=== PATIENT | female | born 1990 | race Caucasian/White ===

== ENCOUNTER → 2017-06-02 | Outpatient (CLI) | payer OTHER | END | disposition home or self-care (01) | LOC: C.PAPS 14:28 | PROVIDERS: ATTEND Obstetrics & Gynecology | DX: Z01.419 Encounter for gynecological examination (general) (routine) without abnormal findings (principal); Z87.898 Personal history of other specified conditions ==

== ENCOUNTER → 2017-06-04 | Outpatient (CLI) | payer OTHER ==
[2017-06-04 13:56] LABS: PROLACTIN 6.93 ng/mL; THYROXINE (T4) 5.4 mcg/dl (4.5-10.9)
== END | disposition home or self-care (01) ==
LOC: C.LAB1850 12:04
PROVIDERS: ATTEND Obstetrics & Gynecology
DX: N91.4 Secondary oligomenorrhea (principal)

== ENCOUNTER → 2017-07-20 | Outpatient (CLI) | payer OTHER | END | disposition home or self-care (01) | LOC: C.LAB1850 08:26 | PROVIDERS: ATTEND Psychiatry & Neurology Neurology | DX: G43.009 Migraine without aura, not intractable, without status migrainosus (principal) ==

== ENCOUNTER 2025-02-23 12:24 | Inpatient (IN) ==
[2025-02-23] MEDS ORDERED: SODIUM CHLORIDE 0.9% 100 ML IV PRN (13:11)
[2025-02-23] MEDS ORDERED: CALCIUM CARBONATE 500 MG CHEWABLE TAB PO PRN (13:45)
[2025-02-23] MEDS ORDERED: OXYTOCIN 30 UNITS/NSS 30 UNITS/500 ML BAG IV PRN (13:45)
[2025-02-23] MEDS ORDERED: LIDOCAINE 1% LOCAL 20 ML VIAL INFIL PRN (13:45)
--- NOTE | 2025-02-23 14:24 | History & Physical Report ---
Date of Service February 23, 2025 Assessment & Plan (1) with 39 completed weeks gestation: (2) Epilepsy complicating , antepartum: (3) Elderly primigravida: (4) Encounter for elective induction of labor: Plan start iol with pit/ruiz. fetus category one. anticipate . Admission and Anticipated Discharge Date Admission Date: February 23, 2025 History of Present Illness Chief Complaint: elective iol Primary Care Provider: Irene Perez DO Patient is a 34yowf with iup at 39 2/7 weeks who presents for elective iol. Notes intermittent contractions. No lof/vb. +fm. and Delivery Plans Epilepsy/migraines *sees neuro, Dr. Leon - On Keppra Depression/Anxiety *zoloft *[facility] AMA Weekly NST's @ 36 weeks Wants to consider 39wk elective induction - PD IOL scheduled for 02/23 with [facility] OB Labs: Blood Type O Positive 08/09/24 Antibody Screen NEGATIVE 08/09/24 Hgb 12.0 g/dl (12.0-16.0) 12/20/24 Hct 35.3 % (37.0-47.0) L 12/20/24 MCV 85.0 fL (80.0-100.0) 08/09/24 Plt Count 281 K/uL (130-400) 08/09/24 Rubella IgG Antibody Immune (Immune) 08/09/24 Treponema pallidum Ab Negative (Negative) 12/20/24 Hep Bs Antigen Negative (Negative) 08/09/24 Hepatitis C Antibody Negative (Negative) 08/09/24 HIV 1&2 Ab/P24 Ag 4thGn Negative (Negative) 08/09/24 Glucose 1 Hr 50 gm 115 mg/dl (70-130) 12/20/24 Maternal Serum AFP 51.8 ng/mL 09/15/24 OB Optional Labs: Chlamydia trachomatis RNA Not Detected (NotDetected) 08/09/24 Neisseria gonorrhoeae RNA Not Detected (NotDetected) 08/09/24 Thyroid Stimulating Hormone (TSH) 1.216 uIu/ml (0.300-4.500) 11/04/22 Alpha Fetoprotein Triple Screen SEE NOTE 09/15/24 Labs Reviewed: afp neg neg horizon low risk panorama. gbs neg Allergies Allergy/AdvReac Type Severity Reaction Status Date / Time topiramate AdvReac Intermediate hair loss Verified 02/22/25 13:32 Home Medications Medication Instructions Recorded Confirmed Type albuterol sulfate 90 mcg/actuation 2 puffs inhalation Q6H PRN Wheezing 02/28/19 02/23/25 History aerosol inhaler (Ventolin HFA) azelastine 137 mcg (0.1 %) nasal 2 sprays intranasal BID 02/28/19 02/23/25 History spray fluticasone propionate 50 2 sprays intranasal BID 02/28/19 02/23/25 History mcg/actuation nasal spray,suspension cholecalciferol (vitamin D3) 125 125 mcg PO DAILY 10/07/21 02/23/25 History mcg (5,000 unit) capsule ferrous sulfate 325 mg (65 mg 125 mg PO Q OTHER DAY 10/07/21 02/23/25 History iron) tablet (Feosol) sulfacetamide sodium 10 % topical 1 applic topical BID 04/06/22 02/23/25 History cream magnesium oxide 500 mg capsule 500 mg PO BID 09/14/23 02/23/25 History riboflavin (vitamin B2) 400 mg 400 mg PO DAILY 09/14/23 02/23/25 History tablet docosahexaenoic acid 200 mg 200 mg PO DAILY 01/20/24 02/23/25 History capsule ( DHA) folic acid 1 mg tablet 1 mg PO DAILY 30 days #30 tabs 05/02/24 02/23/25 Rx sertraline 50 mg tablet 150 mg PO DAILY 08/02/24 02/23/25 History levetiracetam 1,000 mg tablet 1,000 mg PO BID #60 tabs 10/23/24 02/23/25 Rx (Keppra) Patient History Medical History Depression with anxiety History of chicken pox History of HPV infection Chlamydia Asthma Common migraine without aura Restless leg syndrome Surgical History S/P wisdom tooth extraction 2 wisdom teeth H/O cervical biopsy Family History Grandfather (Paternal) No problems noted. Grandmother (Paternal) Seizure disorder Colorectal cancer Grandfather (Maternal) Prostate cancer Mother Rheumatoid arthritis Tinnitus Grandmother (Maternal) Tinnitus Father Skin cancer Denies family history of Ovarian cancer Breast cancer Social History Smoking Status: Former smoker Tobacco Type: Cigarettes Smoking End Date: 2016; Second Hand Exposure: No; Do You Dip or Chew Tobacco: No; Hx Alcohol Use: No Hx Substance Use: No Preferred Language: Kyrgyz Communication Ability: Effective Professor Of Theology Required: No Beliefs That Will Affect Care: None marital status: marital status details: Kieran Esquivel (31) [phone] Current Living Situation: Spouse Current Living Situation Comment: lives with spouse, dog current occupational status: employed 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 toco--fab efm--140s with mod variability, small accels, no decels Results & Data Vital Signs (Past 12 Hours) Vital Signs Temp Pulse Resp BP 02/23/25 12:42 36.7 C 106 H 20 119/73 02/23/25 12:39 36.7 C 106 H 20 119/73 Coding Level of Care Code None Diagnoses with 39 completed weeks gestation Z3A.39 Epilepsy complicating , antepartum O99.350; G40.909 Elderly primigravida O09.519 Encounter for elective induction of labor Z34.90
[2025-02-23 14:31] LABS: Hematocrit (blood only) 34.9 % (37.0-47.0); Hemoglobin 12.2 g/dl (12.0-16.0); Mean Corpuscular Hemoglobin 29.0 pg (25.0-34.0); Mean Corpuscular Volume 83.1 fL (80.0-100.0); Platelet Count 151 K/uL (130-400); RDW Standard Deviation 39.7 fL (36.4-46.3); Red Blood Count 4.20 M/uL (4.20-5.40); White Blood Count 10.24 K/ul (4.8-10.8)
[2025-02-23] MEDS: OXYTOCIN 30 UNITS/NSS 30 UNITS/500 ML BAG IV PRN (15:22)
[2025-02-23] MEDS: LACTATED RINGER'S 1,000 ML IV PRN (15:22)
--- NOTE | 2025-02-23 17:45 | Labor Progress Brief Note ---
Date of Service February 23, 2025 Subjective Bulb fell out. Noting contractions 01/02 Assessment & Plan (1) Encounter for elective induction of labor: Plan continue current therapy. fetus category one. epidural on demand. Admission and Anticipated Discharge Date Admission Date: February 23, 2025 Physical Exam Physical Exam: cx--/-2, arom--clear toco--q2-4min, pit at 6 efm--150s wtih mod varaibility, accels to 170s, no decels Results & Data Vital Signs (Past 12 Hours) Vital Signs Temp Pulse Resp BP 02/23/25 17:30 74 116/58 L 02/23/25 16:30 63 117/74 02/23/25 15:24 88 112/65 02/23/25 12:42 36.7 C 106 H 20 119/73 02/23/25 12:39 36.7 C 106 H 20 119/73 Coding Level of Care Code None Diagnoses Encounter for elective induction of labor Z34.90
--- NOTE | 2025-02-23 18:17 | Anesthesiology Consultation ---
Date of Service February 23, 2025 Assessment & Plan Chart Review Chart Review: Acceptable Risk for Labor Epidural Consults Requested none ASA ASA2 Proposed Anesthesia Anesthesia Type: Labor Epidural Risk / Benefits Reviewed With: PT / POA / Parent / Guardian, Accepts Plan and Informed Consent Obtained History Height/Weight Height: 5 ft Weight: 84.822 kg Allergies Allergy/AdvReac Type Severity Reaction Status Date / Time topiramate AdvReac Intermediate hair loss Verified 02/22/25 13:32 Medications Home Medications Medication Instructions Recorded Confirmed Last Taken albuterol sulfate 90 mcg/actuation 2 puffs inhalation Q6H PRN Wheezing 02/28/19 02/23/25 Unknown aerosol inhaler (Ventolin HFA) azelastine 137 mcg (0.1 %) nasal 2 sprays intranasal BID 02/28/19 02/23/25 02/23/25 05:30 spray fluticasone propionate 50 2 sprays intranasal BID 02/28/19 02/23/25 02/22/25 08:00 mcg/actuation nasal spray,suspension cholecalciferol (vitamin D3) 125 125 mcg PO DAILY 10/07/21 02/23/25 02/22/25 21:00 mcg (5,000 unit) capsule ferrous sulfate 325 mg (65 mg 125 mg PO Q OTHER DAY 10/07/21 02/23/25 02/23/25 05:30 iron) tablet (Feosol) sulfacetamide sodium 10 % topical 1 applic topical BID 04/06/22 02/23/25 02/23/25 05:30 cream magnesium oxide 500 mg capsule 500 mg PO BID 09/14/23 02/23/25 02/23/25 05:30 riboflavin (vitamin B2) 400 mg 400 mg PO DAILY 09/14/23 02/23/25 02/23/25 05:30 tablet docosahexaenoic acid 200 mg 200 mg PO DAILY 01/20/24 02/23/25 02/23/25 05:30 capsule ( DHA) folic acid 1 mg tablet 1 mg PO DAILY 30 days #30 tabs 05/02/24 02/23/25 02/23/25 05:30 sertraline 50 mg tablet 150 mg PO DAILY 08/02/24 02/23/25 02/22/25 21:00 levetiracetam 1,000 mg tablet 1,000 mg PO BID #60 tabs 10/23/24 02/23/25 02/23/25 05:30 (Keppra) Active Medications Generic Name Dose Route Start Last Admin Trade Name Emmy PRN Reason Stop Dose Admin Lactated Ringer's 1,000 mls @ 125 mls/hr 02/23/25 13:45 02/23/25 15:22 Lr IV 02/25/25 13:44 125 mls/hr .Q8H PRN Administration L&D Protocol Protocol Oxytocin 30 units in 500 mls @ 6 mls/hr 02/23/25 14:32 02/23/25 16:30 Pitocin 30 Units/Nss IV 02/25/25 14:31 0.36 units/hr .Q24H PRN 6 mls/hr Labor Induction/Augmentation Titration Protocol 0.36 UNITS/HR NPO Date Last Intake of Fluids: 02/23/25 Time Last Intake of Fluids: 18:15 Date Last Intake of Solids: 02/23/25 Time Last Intake of Solids: 11:00 Last Intake of Solids Comment: Dwayne benoit Past Medical History Medical History (Updated 02/23/25 @ 18:15 by Clare Mccarthy DO) Epilepsy complicating , antepartum Depression with anxiety History of chicken pox History of HPV infection Chlamydia Asthma Common migraine without aura Restless leg syndrome Exercise / Class Metabolic Activity II 4-5 Yardwork/Stairs/Walk up hill Past Family History Family History Grandfather (Paternal) No problems noted. Grandmother (Paternal) Seizure disorder Colorectal cancer Grandfather (Maternal) Prostate cancer Mother Rheumatoid arthritis Tinnitus Grandmother (Maternal) Tinnitus Father Skin cancer Denies family history of Ovarian cancer Breast cancer Past Surgical History Surgical History S/P wisdom tooth extraction 2 wisdom teeth H/O cervical biopsy Past Anesthesia History No Hx of Anesthesia Complications and No Family Hx of Anesthesia Complications History of PONV No Hx of PONV and No Hx of Motion Sickness Social History Smoking Status: Former smoker Do You Dip or Chew Tobacco: No Smoking End Date: 2016 Hx Alcohol Use: No Hx Substance Use: No Physical Exam Vital Signs Last Vital Signs Temp 36.7 C 02/23/25 12:42 Pulse 74 02/23/25 17:30 Resp 20 02/23/25 12:42 BP 116/58 L 02/23/25 17:30 ENMT Mouth: no TMJ abnormality Thyromental Distance: > or= 3.5 Finger Breadths Mallampati Class: II Neck normal visual inspection and trachea midline; neck extension not limited Respiratory normal respiratory effort Auscultation: lungs clear to auscultation bilaterally Cardiovascular Rate/Rhythm: regular rate and regular rhythm Heart Sounds: no murmur Musculoskeletal Spine: normal cervical ROM Extremities: full ROM of extremities Neurologic moves all extremities Psychiatric Orientation: alert and oriented x 3 Testing Laboratory Results 02/23/25 13:42 Blood Type O Positive 02/23/25 13:41 Antibody Screen NEGATIVE 02/23/25 13:41
[2025-02-23] MEDS: BUPIVACAINE 0.25% PF 30 ML VIAL ONE (18:40)
[2025-02-23] MEDS: LIDOCAINE 2%/EPINEPHRINE 1:200,000 20 ML PF ONE (18:40)
[2025-02-23] MEDS: fentANYL 2 MCG/ML BUPIVacaine 0.125%-NSS 100ML BAG ONE (18:40)
[2025-02-23] MEDS ORDERED: NALBUPHINE HCL INJ 10 MG/ML AMP IV PRN (18:43)
[2025-02-23] MEDS ORDERED: diphenhydrAMINE 50 MG/ML VIAL IV PRN (18:43)
[2025-02-23] MEDS ORDERED: BUPIVACAINE 0.25% PF 30 ML VIAL EPI PRN (18:43)
[2025-02-23] MEDS ORDERED: NALOXONE HCL 1 MG in SODIUM CHLORIDE 0.9% 1,000 ML IV PRN (18:43)
[2025-02-23] MEDS ORDERED: ONDANSETRON INJ 2 MG/ML 2 ML VIAL IV PRN (18:43)
[2025-02-23] MEDS ORDERED: SODIUM CHLORIDE 0.9% PF INJ 10 ML VIAL EPI PRN (18:43)
[2025-02-23] MEDS ORDERED: LIDOCAINE 2% MPF LOCAL 5 ML VIAL EPI PRN (18:43)
[2025-02-23] MEDS ORDERED: NALOXONE HCL 0.4 MG/1 ML VIAL/CARP IV PRN (18:43)
[2025-02-23] MEDS ORDERED: ROPIVACAINE 0.5% PF 5 MG/ML 20 ML VIAL EPI PRN (18:43)
[2025-02-23] MEDS: levETIRAcetam 500 MG TAB PO SCH (21:06)
--- NOTE | 2025-02-23 22:40 | Labor Progress Brief Note ---
Date of Service February 23, 2025 Subjective comfortable Assessment & Plan (1) Encounter for elective induction of labor: Plan fetus overall reassuring category one, occasional variable. Is making slow change so hold off on iupc at this point. Recheck in a couple of hours. Admission and Anticipated Discharge Date Admission Date: February 23, 2025 Physical Exam Physical Exam: cx--5/100/-2 toco--q1-3, pit at 10 efm--130s with mod variability, occasional variable, accels to 150s, +scalp stim light green mec has been noted. Results & Data Vital Signs (Past 12 Hours) Vital Signs Temp Pulse Resp BP Pulse Ox 02/23/25 22:36 103 H 100 02/23/25 22:31 83 98 02/23/25 22:26 84 99 02/23/25 22:21 77 98 02/23/25 22:16 78 99 02/23/25 22:13 86 112/59 L 02/23/25 22:11 84 99 02/23/25 22:06 87 99 02/23/25 22:01 86 99 02/23/25 21:56 83 99 02/23/25 21:51 93 H 99 02/23/25 21:46 79 99 02/23/25 21:41 85 100 02/23/25 21:36 87 99 02/23/25 21:31 77 100 02/23/25 21:30 73 104/59 L 02/23/25 21:26 73 99 02/23/25 21:21 75 99 02/23/25 21:16 76 99 02/23/25 21:11 80 100 02/23/25 21:06 78 99 02/23/25 21:01 77 98 02/23/25 21:00 36.6 C 72 16 104/53 L 02/23/25 20:56 76 98 02/23/25 20:51 76 98 02/23/25 20:46 75 99 02/23/25 20:45 86 96/50 L 02/23/25 20:41 76 98 02/23/25 20:36 72 98 02/23/25 20:31 74 97 02/23/25 20:29 75 108/57 L 02/23/25 20:26 74 98 02/23/25 20:21 78 98 02/23/25 20:15 77 98 02/23/25 20:14 73 106/57 L 02/23/25 20:10 83 98 02/23/25 20:05 79 97 02/23/25 20:00 75 97 02/23/25 19:59 77 105/59 L 02/23/25 19:55 76 97 02/23/25 19:50 78 98 02/23/25 19:45 83 98 02/23/25 19:44 81 104/53 L 02/23/25 19:40 80 98 02/23/25 19:35 80 98 02/23/25 19:30 81 98 02/23/25 19:29 78 99/54 L 02/23/25 19:25 81 98 02/23/25 19:20 80 98 02/23/25 19:15 77 98 02/23/25 19:10 85 102/61 99 02/23/25 19:05 99 02/23/25 19:05 84 02/23/25 19:05 94 H 115/60 02/23/25 19:01 81 107/59 L 02/23/25 19:00 18 02/23/25 19:00 36.6 C 18 02/23/25 18:59 84 98 02/23/25 18:55 82 113/60 02/23/25 18:54 83 99 02/23/25 18:49 99 02/23/25 18:49 92 H 02/23/25 18:49 87 123/63 02/23/25 18:47 84 126/63 02/23/25 18:45 83 120/59 L 02/23/25 18:44 84 100 02/23/25 18:43 92 H 119/65 02/23/25 18:41 86 117/58 L 02/23/25 18:40 91 H 120/60 02/23/25 18:39 90 127/62 100 02/23/25 18:37 82 139/66 02/23/25 18:35 93 H 128/53 L 02/23/25 18:34 84 100 02/23/25 18:29 89 84 L 02/23/25 18:28 81 89 L 02/23/25 18:24 83 100 02/23/25 18:19 87 100 02/23/25 18:14 73 99 02/23/25 17:30 74 116/58 L 02/23/25 16:30 63 117/74 02/23/25 15:24 88 112/65 02/23/25 12:42 36.7 C 106 H 20 119/73 02/23/25 12:39 36.7 C 106 H 20 119/73 Coding Level of Care Code None Diagnoses Encounter for elective induction of labor Z34.90
[2025-02-23] MEDS: ACETAMINOPHEN 325 MG TAB PO PRN (22:45)
[2025-02-24] MEDS: fentANYL 2 MCG/ML BUPIVacaine 0.125%-NSS 100ML BAG EPI PRN (01:45)
--- NOTE | 2025-02-24 02:15 | Labor Progress Brief Note ---
Date of Service February 24, 2025 Subjective noting pressure with contractions, some cramping Assessment & Plan (1) Encounter for elective induction of labor: Plan looks like we need more pitocin, aim for 200mvus. Fetus overall reassuring category one. Admission and Anticipated Discharge Date Admission Date: February 23, 2025 Physical Exam Physical Exam: cx--5-6/100/-2 toco--q2min, pit at 10 iupc placed--contractions only looking about 25 mvus efm--120s with mod varaibility, accels present, occasional variable Results & Data Vital Signs (Past 12 Hours) Vital Signs Temp Pulse Resp BP Pulse Ox 02/24/25 02:11 78 100 02/24/25 02:06 87 100 02/24/25 02:01 82 100 02/24/25 01:56 85 100 02/24/25 01:51 83 99 02/24/25 01:46 81 99 02/24/25 01:41 91 H 99 02/24/25 01:36 85 99 02/24/25 01:34 36.8 C 82 16 111/60 02/24/25 01:31 81 97 02/24/25 01:26 82 97 02/24/25 01:21 78 97 02/24/25 01:16 78 97 02/24/25 01:11 85 97 02/24/25 01:06 84 97 02/24/25 01:01 83 97 02/24/25 00:56 81 96 02/24/25 00:51 86 97 02/24/25 00:46 79 98 02/24/25 00:41 83 98 02/24/25 00:36 78 99 02/24/25 00:31 114 H 98 02/24/25 00:29 83 119/66 02/24/25 00:26 86 99 02/24/25 00:21 81 96 02/24/25 00:16 79 96 02/24/25 00:11 76 97 02/24/25 00:06 78 97 02/24/25 00:01 76 97 02/23/25 23:56 76 97 02/23/25 23:51 76 97 02/23/25 23:46 79 98 02/23/25 23:45 36.6 C 75 16 115/56 L 02/23/25 23:41 76 98 02/23/25 23:36 71 99 02/23/25 23:31 88 100 02/23/25 23:26 93 H 100 02/23/25 23:21 85 100 02/23/25 23:16 93 H 99 02/23/25 23:11 80 99 02/23/25 23:06 79 99 02/23/25 23:01 89 99 02/23/25 22:56 89 98 02/23/25 22:51 82 98 02/23/25 22:46 88 98 02/23/25 22:41 85 99 02/23/25 22:36 103 H 100 02/23/25 22:31 83 98 02/23/25 22:26 84 99 02/23/25 22:21 77 98 02/23/25 22:16 78 99 02/23/25 22:13 86 112/59 L 02/23/25 22:11 84 99 02/23/25 22:06 87 99 02/23/25 22:01 86 99 02/23/25 21:56 83 99 02/23/25 21:51 93 H 99 02/23/25 21:46 79 99 02/23/25 21:41 85 100 02/23/25 21:36 87 99 02/23/25 21:31 77 100 02/23/25 21:30 73 104/59 L 02/23/25 21:26 73 99 02/23/25 21:21 75 99 02/23/25 21:16 76 99 02/23/25 21:11 80 100 02/23/25 21:06 78 99 02/23/25 21:01 77 98 02/23/25 21:00 36.6 C 72 16 104/53 L 02/23/25 20:56 76 98 02/23/25 20:51 76 98 02/23/25 20:46 75 99 02/23/25 20:45 86 96/50 L 02/23/25 20:41 76 98 02/23/25 20:36 72 98 02/23/25 20:31 74 97 02/23/25 20:29 75 108/57 L 02/23/25 20:26 74 98 02/23/25 20:21 78 98 02/23/25 20:15 77 98 02/23/25 20:14 73 106/57 L 02/23/25 20:10 83 98 08/01/25 20:05 79 97 02/23/25 20:00 75 97 02/23/25 19:59 77 105/59 L 02/23/25 19:55 76 97 02/23/25 19:50 78 98 02/23/25 19:45 83 98 02/23/25 19:44 81 104/53 L 02/23/25 19:40 80 98 02/23/25 19:35 80 98 02/23/25 19:30 81 98 02/23/25 19:29 78 99/54 L 02/23/25 19:25 81 98 02/23/25 19:20 80 98 02/23/25 19:15 77 98 02/23/25 19:10 85 102/61 99 02/23/25 19:05 99 02/23/25 19:05 84 02/23/25 19:05 94 H 115/60 02/23/25 19:01 81 107/59 L 02/23/25 19:00 18 02/23/25 19:00 36.6 C 18 02/23/25 18:59 84 98 02/23/25 18:55 82 113/60 02/23/25 18:54 83 99 02/23/25 18:49 99 02/23/25 18:49 92 H 02/23/25 18:49 87 123/63 02/23/25 18:47 84 126/63 02/23/25 18:45 83 120/59 L 02/23/25 18:44 84 100 02/23/25 18:43 92 H 119/65 02/23/25 18:41 86 117/58 L 02/23/25 18:40 91 H 120/60 02/23/25 18:39 90 127/62 100 02/23/25 18:37 82 139/66 02/23/25 18:35 93 H 128/53 L 02/23/25 18:34 84 100 02/23/25 18:29 89 84 L 02/23/25 18:28 81 89 L 02/23/25 18:24 83 100 02/23/25 18:19 87 100 02/23/25 18:14 73 99 02/23/25 17:30 74 116/58 L 02/23/25 16:30 63 117/74 02/23/25 15:24 88 112/65 Coding Level of Care Code None Diagnoses Encounter for elective induction of labor Z34.90
[2025-02-24] MEDS: diphenhydrAMINE Capsule 25 MG CAP PO ONE ×2 (02:45→11:42)
[2025-02-24] MEDS: METOCLOPRAMIDE HCL 10 MG TABLET PO ONE ×2 (02:46→11:43)
--- NOTE | 2025-02-24 06:34 | Labor Progress Brief Note ---
Date of Service February 24, 2025 Subjective comfortable Assessment & Plan (1) Encounter for elective induction of labor: Plan Having difficulty getting an adequate contraction pattern. Fetus is overall reassuring category 2 with occasional variables noted making it 2. Discussed concern at this point of not being able to get adequate contractions. Will need to continue to go up on the pitocin to see if we can achieve anything close to adequate. Baby is still high in the pelvis. Patient expresses understanding. Admission and Anticipated Discharge Date Admission Date: February 23, 2025 Physical Exam Physical Exam: cx--5-6/90/-2 toco--inadequate and at times dysfunctional contraction pattern. Not 200mvus. Pit at 16. efm--120s with mod varability, small accels, +scalp stim. Occasional variables, mostly with contractions. Results & Data Vital Signs (Past 12 Hours) Vital Signs Temp Pulse Resp BP Pulse Ox 02/24/25 06:26 93 H 100 02/24/25 06:21 77 97 02/24/25 06:16 84 97 02/24/25 06:11 86 98 02/24/25 06:06 80 98 02/24/25 06:01 77 98 02/24/25 05:56 77 98 02/24/25 05:51 79 98 02/24/25 05:46 76 98 02/24/25 05:41 82 100 02/24/25 05:38 36.8 C 85 16 107/64 02/24/25 05:36 107 H 100 02/24/25 05:31 83 98 02/24/25 05:26 86 98 02/24/25 05:21 82 98 02/24/25 05:16 81 98 02/24/25 05:11 79 98 02/24/25 05:06 82 98 02/24/25 05:01 75 99 02/24/25 04:56 77 99 02/24/25 04:51 74 99 02/24/25 04:46 93 H 99 02/24/25 04:41 79 100 02/24/25 04:36 75 99 02/24/25 04:31 93 H 100 02/24/25 04:26 84 99 02/24/25 04:21 85 100 02/24/25 04:16 74 100 02/24/25 04:11 71 99 02/24/25 04:10 36.8 C 72 16 113/61 08/02/25 04:06 85 100 02/24/25 04:01 78 99 02/24/25 03:56 77 99 02/24/25 03:51 72 99 02/24/25 03:46 75 98 02/24/25 03:41 74 98 02/24/25 03:36 76 98 02/24/25 03:31 74 98 02/24/25 03:26 75 98 02/24/25 03:21 77 97 02/24/25 03:16 75 98 02/24/25 03:11 76 98 02/24/25 03:06 78 99 02/24/25 03:03 36.5 C 76 15 116/65 02/24/25 03:01 75 98 02/24/25 02:56 79 98 02/24/25 02:51 77 99 02/24/25 02:46 75 99 02/24/25 02:41 81 99 02/24/25 02:36 80 99 02/24/25 02:31 87 99 02/24/25 02:26 78 99 02/24/25 02:21 74 100 02/24/25 02:20 79 114/65 02/24/25 02:16 71 100 02/24/25 02:11 78 100 02/24/25 02:06 87 100 02/24/25 02:01 82 100 02/24/25 01:56 85 100 02/24/25 01:51 83 99 02/24/25 01:46 81 99 02/24/25 01:41 91 H 99 02/24/25 01:36 85 99 02/24/25 01:34 36.8 C 82 16 111/60 02/24/25 01:31 81 97 02/24/25 01:26 82 97 02/24/25 01:21 78 97 02/24/25 01:16 78 97 02/24/25 01:11 85 97 02/24/25 01:06 84 97 02/24/25 01:01 83 97 02/24/25 00:56 81 96 02/24/25 00:51 86 97 02/24/25 00:46 79 98 02 00:41 83 98 02/24/25 00:36 78 99 02/24/25 00:31 114 H 98 02/24/25 00:29 83 119/66 08/02/25 00:26 86 99 02/24/25 00:21 81 96 02/24/25 00:16 79 96 02/24/25 00:11 76 97 02/24/25 00:06 78 97 02/24/25 00:01 76 97 02/23/25 23:56 76 97 02/23/25 23:51 76 97 02/23/25 23:46 79 98 02/23/25 23:45 36.6 C 75 16 115/56 L 02/23/25 23:41 76 98 02/23/25 23:36 71 99 02/23/25 23:31 88 100 02/23/25 23:26 93 H 100 02/23/25 23:21 85 100 02/23/25 23:16 93 H 99 02/23/25 23:11 80 99 02/23/25 23:06 79 99 02/23/25 23:01 89 99 02/23/25 22:56 89 98 02/23/25 22:51 82 98 02/23/25 22:46 88 98 02/23/25 22:41 85 99 02/23/25 22:36 103 H 100 02/23/25 22:31 83 98 02/23/25 22:26 84 99 02/23/25 22:21 77 98 02/23/25 22:16 78 99 02/23/25 22:13 86 112/59 L 02/23/25 22:11 84 99 02/23/25 22:06 87 99 02/23/25 22:01 86 99 02/23/25 21:56 83 99 02/23/25 21:51 93 H 99 02/23/25 21:46 79 99 02/23/25 21:41 85 100 02/23/25 21:36 87 99 02/23/25 21:31 77 100 02/23/25 21:30 73 104/59 L 02/23/25 21:26 73 99 02/23/25 21:21 75 99 02/23/25 21:16 76 99 02/23/25 21:11 80 100 02/23/25 21:06 78 99 02/23/25 21:01 77 98 02/23/25 21:00 36.6 C 72 16 104/53 L 02/23/25 20:56 76 98 02/23/25 20:51 76 98 02/23/25 20:46 75 99 02/23/25 20:45 86 96/50 L 02/23/25 20:41 76 98 02/23/25 20:36 72 98 02/23/25 20:31 74 97 02/23/25 20:29 75 108/57 L 02/23/25 20:26 74 98 02/23/25 20:21 78 98 02/23/25 20:15 77 98 02/23/25 20:14 73 106/57 L 02/23/25 20:10 83 98 02/23/25 20:05 79 97 02/23/25 20:00 75 97 02/23/25 19:59 77 105/59 L 02/23/25 19:55 76 97 02/23/25 19:50 78 98 02/23/25 19:45 83 98 02/23/25 19:44 81 104/53 L 02/23/25 19:40 80 98 02/23/25 19:35 80 98 02/23/25 19:30 81 98 02/23/25 19:29 78 99/54 L 02/23/25 19:25 81 98 02/23/25 19:20 80 98 02/23/25 19:15 77 98 02/23/25 19:10 85 102/61 99 02/23/25 19:05 99 02/23/25 19:05 84 02/23/25 19:05 94 H 115/60 02/23/25 19:01 81 107/59 L 02/23/25 19:00 18 02/23/25 19:00 36.6 C 18 02/23/25 18:59 84 98 02/23/25 18:55 82 113/60 02/23/25 18:54 83 99 02/23/25 18:49 99 02/23/25 18:49 92 H 02/23/25 18:49 87 123/63 02/23/25 18:47 84 126/63 02/23/25 18:45 83 120/59 L 02/23/25 18:44 84 100 02/23/25 18:43 92 H 119/65 02/23/25 18:41 86 117/58 L 02/23/25 18:40 91 H 120/60 02/23/25 18:39 90 127/62 100 02/23/25 18:37 82 139/66 02/23/25 18:35 93 H 128/53 L 02/23/25 18:34 84 100 Coding Level of Care Code None Diagnoses Encounter for elective induction of labor Z34.90
[2025-02-24] MEDS: LIDOCAINE 2%/EPINEPHRINE 1:200,000 20 ML PF EPI STA (08:16)
[2025-02-24] MEDS: SODIUM CHLORIDE 0.9% PF INJ 10 ML VIAL ONE (08:16)
[2025-02-24] MEDS: SODIUM CHLORIDE 0.9% PF INJ 10 ML VIAL EPI STA (08:16)
[2025-02-24] MEDS: BUPIVACAINE 0.25% PF 30 ML VIAL EPI STA (08:16)
[2025-02-24] MEDS: SERTRALINE HCL 50 MG TABLET PO SCH ×2 (08:17→20:49)
[2025-02-24] MEDS ORDERED: levETIRAcetam 500 MG TAB PO SCH (09:00)
--- NOTE | 2025-02-24 09:34 | Labor Progress Brief Note ---
Date of Service February 24, 2025 Subjective comfortable w/ epidural Assessment & Plan (1) Encounter for elective induction of labor: (2) with 39 completed weeks gestation: Plan 34 yo G1 at 39 3/7 wga admitted for eIOL VSS Fetus cat 1 Pit just increased to 26, sve still similar, ?if slight progress in station but hard to tell as this was my first exam. She is considering cs at this point given lack in progress but may want to get to 30 first to see if any further change, can certainly go to 30 as she and baby are reassuring. Will let me know if changes her mind before then GBS neg epidural in place Admission and Anticipated Discharge Date Admission Date: February 23, 2025 Physical Exam Genitourinary: Manual OB Exam: + cervical dilation (5-6), + cervical effacement 80% and 90% and + station -2 and -1 OB Exam Monitor Tracing: + external FHT monitor used, + intra-uterine pressure catheter used (ctx inadeq) and + category I (125-130/mod/+accel/intermit early) Results & Data Vital Signs (Past 12 Hours) Vital Signs Temp Pulse Resp BP Pulse Ox 02/24/25 09:26 88 100 02/24/25 09:21 86 99 02/24/25 09:16 85 99 02/24/25 09:11 76 98 02/24/25 09:06 78 99 02/24/25 09:01 78 99 02/24/25 08:56 83 100 02/24/25 08:51 82 99 02/24/25 08:46 81 99 02/24/25 08:41 80 100 02/24/25 08:36 84 100 02/24/25 08:31 85 100 02/24/25 08:26 80 99 02/24/25 08:21 83 100 02/24/25 08:16 80 100 02/24/25 08:11 91 H 100 02/24/25 08:06 83 100 02/24/25 08:01 77 100 02/24/25 07:56 80 99 02/24/25 07:51 76 100 02/24/25 07:48 98.1 F 74 20 117/61 02/24/25 07:46 76 100 02/24/25 07:41 87 100 02/24/25 07:36 93 H 98 02/24/25 07:31 85 100 02/24/25 07:26 83 100 02/24/25 07:21 100 02/24/25 07:21 98 H 02/24/25 07:21 107 H 92 02/24/25 07:16 94 H 100 02/24/25 07:11 85 100 02/24/25 07:06 88 100 02/24/25 07:01 85 100 02/24/25 06:56 84 98 02/24/25 06:51 78 98 02/24/25 06:46 79 98 02/24/25 06:41 76 99 02/24/25 06:36 84 99 02/24/25 06:31 91 H 99 02/24/25 06:30 85 116/72 02/24/25 06:26 93 H 100 02/24/25 06:21 77 97 02/24/25 06:16 84 97 02/24/25 06:11 86 98 02/24/25 06:06 80 98 02/24/25 06:01 77 98 02/24/25 05:56 77 98 02/24/25 05:51 79 98 02/24/25 05:46 76 98 02/24/25 05:41 82 100 02/24/25 05:38 98.2 F 85 16 107/64 02/24/25 05:36 107 H 100 02/24/25 05:31 83 98 02/24/25 05:26 86 98 02/24/25 05:21 82 98 02/24/25 05:16 81 98 02/24/25 05:11 79 98 02/24/25 05:06 82 98 02/24/25 05:01 75 99 02/24/25 04:56 77 99 02/24/25 04:51 74 99 02/24/25 04:46 93 H 99 02/24/25 04:41 79 100 02/24/25 04:36 75 99 02/24/25 04:31 93 H 100 02/24/25 04:26 84 99 02/24/25 04:21 85 100 02/24/25 04:16 74 100 02/24/25 04:11 71 99 02/24/25 04:10 98.2 F 72 16 113/61 02/24/25 04:06 85 100 02/24/25 04:01 78 99 02/24/25 03:56 77 99 02/24/25 03:51 72 99 02/24/25 03:46 75 98 02/24/25 03:41 74 98 02/24/25 03:36 76 98 02/24/25 03:31 74 98 02/24/25 03:26 75 98 02/24/25 03:21 77 97 02/24/25 03:16 75 98 02/24/25 03:11 76 98 02/24/25 03:06 78 99 02/24/25 03:03 97.7 F 76 15 116/65 02/24/25 03:01 75 98 02/24/25 02:56 79 98 02/24/25 02:51 77 99 02/24/25 02:46 75 99 02/24/25 02:41 81 99 02/24/25 02:36 80 99 02/24/25 02:31 87 99 02/24/25 02:26 78 99 02/24/25 02:21 74 100 02/24/25 02:20 79 114/65 02/24/25 02:16 71 100 02/24/25 02:11 78 100 02/24/25 02:06 87 100 02/24/25 02:01 82 100 02/24/25 01:56 85 100 02/24/25 01:51 83 99 02/24/25 01:46 81 99 02/24/25 01:41 91 H 99 02/24/25 01:36 85 99 02/24/25 01:34 98.2 F 82 16 111/60 02/24/25 01:31 81 97 02/24/25 01:26 82 97 02/24/25 01:21 78 97 02/24/25 01:16 78 97 02/24/25 01:11 85 97 02/24/25 01:06 84 97 02/24/25 01:01 83 97 02 00:56 81 96 02 00:51 86 97 02/24/25 00:46 79 98 02 00:41 83 98 02/24/25 00:36 78 99 0802 00:31 114 H 98 02 00:29 83 119/66 02 00:26 86 99 02/24/25 00:21 81 96 02/24/25 00:16 79 96 02/24/25 00:11 76 97 02/24/25 00:06 78 97 02/24/25 00:01 76 97 02/23/25 23:56 76 97 02/23/25 23:51 76 97 02/23/25 23:46 79 98 02/23/25 23:45 97.9 F 75 16 115/56 L 02/23/25 23:41 76 98 02/23/25 23:36 71 99 02/23/25 23:31 88 100 02/23/25 23:26 93 H 100 02/23/25 23:21 85 100 02/23/25 23:16 93 H 99 02/23/25 23:11 80 99 02/23/25 23:06 79 99 02/23/25 23:01 89 99 02/23/25 22:56 89 98 02/23/25 22:51 82 98 02/23/25 22:46 88 98 02/23/25 22:41 85 99 02/23/25 22:36 103 H 100 02/23/25 22:31 83 98 02/23/25 22:26 84 99 02/23/25 22:21 77 98 02/23/25 22:16 78 99 02/23/25 22:13 86 112/59 L 02/23/25 22:11 84 99 02/23/25 22:06 87 99 02/23/25 22:01 86 99 02/23/25 21:56 83 99 02/23/25 21:51 93 H 99 02/23/25 21:46 79 99 02/23/25 21:41 85 100 02/23/25 21:36 87 99 02/23/25 21:31 77 100 02/23/25 21:30 73 104/59 L Coding Level of Care Code None Diagnoses Encounter for elective induction of labor Z34.90 with 39 completed weeks gestation Z3A.39
[2025-02-24] MEDS: ACETAMINOPHEN 500 MG TAB PO ONE (11:42)
[2025-02-24] MEDS ORDERED: MoRPHine SULFATE PF 1 MG/ML 10 ML AMP/VIAL ONE (12:39)
[2025-02-24] MEDS ORDERED: DEXAMETHASONE SOD INJ 4 MG/ML VIAL ONE (12:40)
[2025-02-24] MEDS ORDERED: OXYTOCIN 10 UNITS/ML VIAL ONE (12:40)
--- NOTE | 2025-02-24 12:40 | Labor Progress Brief Note ---
Date of Service February 24, 2025 Subjective pit at 30 x 2hrs Assessment & Plan (1) Encounter for elective induction of labor: (2) with 39 completed weeks gestation: Plan 34 yo G1 at 39 3/7 wga admitted for eIOL VSS Fetus cat 1 SVE unchanged, pit has been at 30 x 2hrs and still inadequate. Pt desiring to proceed with CS and I think that would be best next step as suspect cpd for failed induction. Discussed indications, risks, benefits, alternatives with risks including infection, bleeding, injury to adjacent structures (bowel, bladder, ureters, blood vessels, nerves, baby), possible need for blood transfusion and/or life saving hysterectomy, VTE. Consent reviewed in detail w/ pt and signed after all questions answered to her satisfaction. Plan for ancef/azithro. Anesthesia and peds made aware Admission and Anticipated Discharge Date Admission Date: February 23, 2025 Physical Exam Genitourinary: Manual OB Exam: + cervical dilation (5-6), + cervical effacement 80% and 90% and + station -2 and -1 OB Exam Monitor Tracing: + external FHT monitor used, + intra-uterine pressure catheter used (q3, still inadeq) and + category I (135/mod/+accel/intermit early) Results & Data Vital Signs (Past 12 Hours) Vital Signs Temp Pulse Resp BP Pulse Ox 02/24/25 12:31 75 100 02/24/25 12:26 82 100 02/24/25 12:21 82 100 02/24/25 12:16 75 100 02/24/25 12:11 79 100 02/24/25 12:06 81 100 02/24/25 12:01 81 100 02/24/25 11:56 74 100 02/24/25 11:51 80 100 02/24/25 11:46 80 100 02/24/25 11:41 80 100 02/24/25 11:36 82 100 02/24/25 11:31 88 100 02/24/25 11:26 85 100 02/24/25 11:21 85 100 02/24/25 11:16 89 99 02/24/25 11:11 77 99 02/24/25 11:06 76 98 02/24/25 11:01 80 98 02/24/25 10:56 76 98 02/24/25 10:51 78 98 02/24/25 10:46 77 98 08/02/25 10:41 75 98 02/24/25 10:36 76 98 02/24/25 10:31 77 98 02/24/25 10:26 75 98 02/24/25 10:21 74 98 02/24/25 10:16 74 98 02/24/25 10:11 72 98 02/24/25 10:06 74 98 02/24/25 10:01 76 98 02/24/25 09:56 72 97 02/24/25 09:51 73 98 02/24/25 09:46 74 98 02/24/25 09:41 74 98 02/24/25 09:36 78 99 02/24/25 09:31 91 H 99 02/24/25 09:26 88 100 02/24/25 09:21 86 99 02/24/25 09:16 85 99 02/24/25 09:11 76 98 02/24/25 09:06 78 99 02/24/25 09:01 78 99 02/24/25 08:56 83 100 02/24/25 08:51 82 99 02/24/25 08:46 81 99 02/24/25 08:41 80 100 02/24/25 08:36 84 100 02/24/25 08:31 85 100 02/24/25 08:26 80 99 02/24/25 08:21 83 100 02/24/25 08:16 80 100 02/24/25 08:11 91 H 100 02/24/25 08:06 83 100 02/24/25 08:01 77 100 02/24/25 07:56 80 99 02/24/25 07:51 76 100 02/24/25 07:48 98.1 F 74 20 117/61 02/24/25 07:46 76 100 02/24/25 07:41 87 100 02/24/25 07:36 93 H 98 02/24/25 07:31 85 100 02/24/25 07:26 83 100 02/24/25 07:21 100 02/24/25 07:21 98 H 02/24/25 07:21 107 H 92 02/24/25 07:16 94 H 100 02/24/25 07:11 85 100 02/24/25 07:06 88 100 02/24/25 07:01 85 100 02/24/25 06:56 84 98 02/24/25 06:51 78 98 02/24/25 06:46 79 98 02/24/25 06:41 76 99 02/24/25 06:36 84 99 02/24/25 06:31 91 H 99 02/24/25 06:30 85 116/72 02/24/25 06:26 93 H 100 02/24/25 06:21 77 97 02/24/25 06:16 84 97 02/24/25 06:11 86 98 02/24/25 06:06 80 98 02/24/25 06:01 77 98 02/24/25 05:56 77 98 02/24/25 05:51 79 98 02/24/25 05:46 76 98 02/24/25 05:41 82 100 02/24/25 05:38 98.2 F 85 16 107/64 02/24/25 05:36 107 H 100 02/24/25 05:31 83 98 02/24/25 05:26 86 98 02/24/25 05:21 82 98 02/24/25 05:16 81 98 02/24/25 05:11 79 98 02/24/25 05:06 82 98 02/24/25 05:01 75 99 02/24/25 04:56 77 99 02/24/25 04:51 74 99 02/24/25 04:46 93 H 99 02/24/25 04:41 79 100 02/24/25 04:36 75 99 02/24/25 04:31 93 H 100 02/24/25 04:26 84 99 02/24/25 04:21 85 100 02/24/25 04:16 74 100 02/24/25 04:11 71 99 02/24/25 04:10 98.2 F 72 16 113/61 02/24/25 04:06 85 100 02/24/25 04:01 78 99 02/24/25 03:56 77 99 02/24/25 03:51 72 99 02/24/25 03:46 75 98 02/24/25 03:41 74 98 02/24/25 03:36 76 98 02/24/25 03:31 74 98 02/24/25 03:26 75 98 02/24/25 03:21 77 97 02/24/25 03:16 75 98 02/24/25 03:11 76 98 02/24/25 03:06 78 99 02/24/25 03:03 97.7 F 76 15 116/65 02/24/25 03:01 75 98 02/24/25 02:56 79 98 02/24/25 02:51 77 99 02/24/25 02:46 75 99 02/24/25 02:41 81 99 02/24/25 02:36 80 99 02/24/25 02:31 87 99 02/24/25 02:26 78 99 02/24/25 02:21 74 100 02/24/25 02:20 79 114/65 02/24/25 02:16 71 100 02/24/25 02:11 78 100 02/24/25 02:06 87 100 02/24/25 02:01 82 100 02/24/25 01:56 85 100 02/24/25 01:51 83 99 02/24/25 01:46 81 99 02/24/25 01:41 91 H 99 02/24/25 01:36 85 99 02/24/25 01:34 98.2 F 82 16 111/60 02/24/25 01:31 81 97 02/24/25 01:26 82 97 02/24/25 01:21 78 97 02/24/25 01:16 78 97 02/24/25 01:11 85 97 02/24/25 01:06 84 97 02/24/25 01:01 83 97 02/24/25 00:56 81 96 02/24/25 00:51 86 97 02/24/25 00:46 79 98 02/24/25 00:41 83 98 Coding Level of Care Code None Diagnoses Encounter for elective induction of labor Z34.90 with 39 completed weeks gestation Z3A.39
[2025-02-24] MEDS ORDERED: ONDANSETRON INJ 2 MG/ML 2 ML VIAL ONE (12:41)
[2025-02-24] MEDS ORDERED: METOCLOPRAMIDE HCL INJ 5 MG/ML 2 ML VIAL ONE (12:41)
[2025-02-24] MEDS ORDERED: LIDOCAINE 2% MPF LOCAL 5 ML VIAL ONE (12:41)
[2025-02-24] MEDS: CITRIC ACID/SODIUM CITRATE 15 ML UDC PO SCH (12:55)
[2025-02-24] MEDS: AZITHROMYCIN 500 MG/255 ML BAG IV SCH (13:01)
[2025-02-24] MEDS ORDERED: METHYLERGONOVINE MALEATE 0.2 MG/ML AMP ONE (13:33)
[2025-02-24] MEDS ORDERED: PHENYLEPHRINE 100MCG/ML 5ML SYR ONE (13:43)
[2025-02-24] MEDS ORDERED: PHENYLEPHRINE HCL 25 MG/250 ML NSS IV ONE (13:43)
[2025-02-24] MEDS ORDERED: KETOROLAC 30 MG/ML VIAL ONE (14:03)
--- NOTE | 2025-02-24 14:13 | Operative Report ---
Post Operative Report Pre & Post Diagnosis Operation Date: 02/24/25 13:00 Pre-Op Diagnosis: Single intrauterine at 39 3/7 wga; Failed Induction; Epilepsy; AMA Post-Op Diagnosis: Same;Delivery of a live male child at 1324 I identified the patient and participated in the time-out.: Yes Procedure Operation Date: 02/24/25 13:00 Actual Procedures p Primary Low Transverse Section in LD(Bilateral) - Catalina Pizarro MD Surgeon Catalina Pizarro MD Hearse Driver MD Claudia Quantitative Blood Loss (QBL) 1010 Findings Consistent with Post-Op Diagnosis Normal appearing uterus, bilateral fallopian tubes and ovaries. Viable male infant weighing 8lbs 4oz, APGARs of 9 and 9. Found to be direct OP upon entry into abdomen Fluids UOP 200cc clear urine Specimens Cord blood Drains Ruiz initially pink tinged prior to procedure and then cleared, continued to drain concentrated but clear urine Anesthesia Type L&D Only Epidural Exists Complications none Disposition Accompanied Patient To Recovery: Yes Disposition: L&D Indications 34 yo G1 at 39 3/7 wga presented for eIOL yesterday afternoon. Induction begun with ruiz bulb and pitocin. Following bulb expulsion, she underwent arom and then epidural for pain control. Pitocin was unable to gain adequate contract ions so IUPC was placed to help guide. Pitocin maximum was increased to 30 however still could not get adequate contractions and cervix would not dilate past 5-6cm for 12+ hrs. Discussed options and pt desired to proceed with above procedure Description of Procedure The patient was taken to the operating room after consents were ensured. The patient was properly identified. Epidural anesthesia was bolused without difficulty. The patient was placed in a dorsal supine position with left lateral tilt, then prepped and draped in normal sterile fashion. Surgical time out was performed. Antibiotics were given for prophylaxis. Anesthesia was tested to ensure adequate surgical levels. Pfannenstiel skin incision was performed and carried down to the underlying fascia with a knife. The fascia was then nicked in the midline and extended laterally with pickups and Woodall scissors. Superior portion of the fascia was grasped with Kochers x2 and elevated off the underlying rectus muscles using blunt dissection. Inferior portion of the fascia was then grasped with Jose Maria clamps x2 and also elevated off the underlying muscles with blunt dissection. Midline was identified. The peritoneum was then entered and extended to provide adequate room for delivery of baby. A hand was inserted into the abdomen, uterus was noted to be clear of adhesions. Bladder blade was inserted, bladder flap was created in the usual fashion. A low transverse uterine incision was made in the uterus and extended bluntly in a superior to inferior fashion. Amniotomy was made with clear fluid at the time of rupture. head was grasped and elevated through the hysterotomy in an atraumatic fashion. The baby delivered in OP position, no nuchal cord. Remainder of the body delivered without incident. Nose and mouth were bulb suctioned on the surgical field. The cord was double clamped and cut, baby was handed off to awaiting pediatrics staff. Cord segment and blood were obtained. Placenta was then expressed from the uterus. The uterus was exteriorized. Several passes were made inside the uterus to remove the remaining membranes. Attention was then turned to the hysterotomy, which was then closed with a running locked suture of 0 Vicryl on a CTX needle. An imbricating layer was then performed using 0-Monocryl. Uterine atony was noted so one dose of met hergine was administered which improved tone. There was noted to be good hemostasis. The posterior cul-de-sac was then inspected and cleaned of clot and debris. The hysterotomy was again inspected and noted to be hemostatic. The uterus was returned to the abdomen. The right and left pericolic gutters were cleaned of all clot and debris. The hysterotomy was again noted to be hemostatic. Space of Retzius was noted to be hemostatic. Luis Alfredo was applied to inferior rectus muscle bed. The fascia was then closed with a running suture of 0 Vicryl on a CT1 needle. Subcutaneous tissue was copiously irrigated and noted to be hemostatic. Subcutaneous tissue was re-approximated using 2-0 plain gut. The skin was then closed with a running suture of 3-0 Monocryl in a subcuticular fashion. At termination of the procedure, fundal pressure was applied and a moderate amount of lochia was expressed. Pressure dressing was applied to the patient. She tolerated the procedure well. All sponge, needle, instrument counts were correct x 2. I attest to the content of the Intraoperative Record and any orders documented therein. Any exceptions are noted below. OB Procedure Charges 09617
[2025-02-24] MEDS ORDERED: PROMETHAZINE 12.5 MG/50.5 ML BAG IV PRN (14:23)
[2025-02-24] MEDS ORDERED: BENZOCAINE 20% SPRY 85 APPLN/85 GM CAN EXT PRN (14:23)
[2025-02-24] MEDS ORDERED: HYDROCORTISONE ACETATE 25 MG SUPP PR PRN (14:23)
[2025-02-24] MEDS ORDERED: ONDANSETRON INJ 2 MG/ML 2 ML VIAL IV PRN ×2 (14:23→14:54)
[2025-02-24] MEDS ORDERED: SENNA 8.6 MG TAB PO PRN (14:23)
[2025-02-24] MEDS ORDERED: ALBUTEROL HFA 8 GM INHALER INH PRN (14:23)
[2025-02-24] MEDS: OXYTOCIN 20 UNITS/1002ML LR IV ONE (14:24)
[2025-02-24] MEDS ORDERED: NALOXONE HCL 1 MG in SODIUM CHLORIDE 0.9% 1,000 ML IV PRN (14:54)
[2025-02-24] MEDS ORDERED: NALOXONE HCL 0.4 MG/1 ML VIAL/CARP IV PRN (14:54)
[2025-02-24] MEDS ORDERED: LACTATED RINGER'S 500 ML IV PRN (14:54)
[2025-02-24] MEDS ORDERED: MEPERIDINE HCL 25 MG/ML CARP/VIAL IV PRN (14:54)
[2025-02-24] MEDS ORDERED: diphenhydrAMINE 50 MG/ML VIAL IV PRN (14:54)
[2025-02-24] MEDS ORDERED: NALBUPHINE HCL INJ 10 MG/ML AMP IV PRN (14:54)
[2025-02-24] MEDS ORDERED: MoRPHine SULFATE 2 MG/ML CARP IV PRN (14:54)
--- NOTE | 2025-02-24 14:54 | Anesthesia Procedure Note ---
Date of Service February 24, 2025 Anesthesia Post Epidural Note Vital Signs Vital Signs: Temp Pulse Resp BP Pulse Ox 36.7 C 70 18 140/65 96 02/24/25 14:24 02/24/25 14:48 02/24/25 14:44 02/24/25 14:42 02/24/25 14:48 Pain Intensity Lower Back: Pain Intensity: 0 Notes Mental Status: alert / awake / arousable and participated in evaluation Nausea / Vomiting: adequately controlled Pain: adequately controlled Airway Patency, RR, SpO2: stable & adequate BP & HR: stable & adequate Hydration State: stable & adequate Neuraxial Anesthesia: was administered and sensory block is resolving Anesthetic Complications: no major complications apparent and Pt Satisfied with anesthetic care Epidural: Removed without complications and With tip intact
--- NOTE | 2025-02-24 14:54 | Anesthesiology Progress Note ---
Date of Service February 24, 2025 Anesthesia Post Procedure Vital Signs Vital Signs: Temp Pulse Resp BP Pulse Ox 02/24/25 14:52 153/80 H 02/24/25 14:48 70 96 02/24/25 14:47 86 93 02/24/25 14:44 18 02/24/25 14:43 70 95 02/24/25 14:42 71 140/65 02/24/25 14:41 70 94 02/24/25 14:38 74 97 02/24/25 14:34 17 02/24/25 14:33 75 137/66 97 02/24/25 14:29 76 138/72 02/24/25 14:28 75 97 02/24/25 14:24 36.7 C 20 02/24/25 14:23 72 96 02/24/25 14:22 79 140/66 02/24/25 14:20 82 93 02/24/25 14:18 76 95 02/24/25 14:14 36.7 C 20 02/24/25 14:14 74 145/69 H 02/24/25 14:13 77 96 02/24/25 13:01 89 99 02/24/25 12:56 97 H 99 02/24/25 12:51 86 99 02/24/25 12:46 77 97 02/24/25 12:41 83 98 02/24/25 12:36 80 100 02/24/25 12:31 75 100 02/24/25 12:26 82 100 02/24/25 12:21 82 100 02/24/25 12:16 75 100 02/24/25 12:11 79 100 02/24/25 12:06 81 100 02/24/25 12:01 81 100 02/24/25 11:56 74 100 02/24/25 11:51 80 100 02/24/25 11:46 80 100 02/24/25 11:41 80 100 02/24/25 11:36 82 100 02/24/25 11:31 88 100 02/24/25 11:26 85 100 02/24/25 11:21 85 100 02/24/25 11:16 89 99 02/24/25 11:11 77 99 02/24/25 11:06 76 98 02/24/25 11:01 80 98 02/24/25 10:56 76 98 02/24/25 10:51 78 98 02/24/25 10:46 77 98 02/24/25 10:41 75 98 02/24/25 10:36 76 98 02/24/25 10:31 77 98 02/24/25 10:26 75 98 02/24/25 10:21 74 98 02/24/25 10:16 74 98 02/24/25 10:11 72 98 02/24/25 10:06 74 98 02/24/25 10:01 76 98 02/24/25 09:56 72 97 02/24/25 09:51 73 98 02/24/25 09:46 74 98 02/24/25 09:41 74 98 02/24/25 09:36 78 99 02/24/25 09:31 91 H 99 02/24/25 09:26 88 100 02/24/25 09:21 86 99 02/24/25 09:16 85 99 02/24/25 09:11 76 98 02/24/25 09:06 78 99 02/24/25 09:01 78 99 02/24/25 08:56 83 100 02/24/25 08:51 82 99 02/24/25 08:46 81 99 02/24/25 08:41 80 100 02/24/25 08:36 84 100 02/24/25 08:31 85 100 02/24/25 08:26 80 99 02/24/25 08:21 83 100 02/24/25 08:16 80 100 02/24/25 08:11 91 H 100 02/24/25 08:06 83 100 02/24/25 08:01 77 100 02/24/25 07:56 80 99 02/24/25 07:51 76 100 02/24/25 07:48 36.7 C 74 20 117/61 02/24/25 07:46 76 100 02/24/25 07:41 87 100 02/24/25 07:36 93 H 98 02/24/25 07:31 85 100 02/24/25 07:26 83 100 02/24/25 07:21 100 02/24/25 07:21 98 H 02/24/25 07:21 107 H 92 02/24/25 07:16 94 H 100 02/24/25 07:11 85 100 02/24/25 07:06 88 100 02/24/25 07:01 85 100 02/24/25 06:56 84 98 02/24/25 06:51 78 98 02/24/25 06:46 79 98 02/24/25 06:41 76 99 02/24/25 06:36 84 99 02/24/25 06:31 91 H 99 02/24/25 06:30 85 116/72 02/24/25 06:26 93 H 100 02/24/25 06:21 77 97 02/24/25 06:16 84 97 02/24/25 06:11 86 98 02/24/25 06:06 80 98 02/24/25 06:01 77 98 02/24/25 05:56 77 98 02/24/25 05:51 79 98 02/24/25 05:46 76 98 02/24/25 05:41 82 100 02/24/25 05:38 36.8 C 85 16 107/64 02/24/25 05:36 107 H 100 02/24/25 05:31 83 98 02/24/25 05:26 86 98 02/24/25 05:21 82 98 02/24/25 05:16 81 98 02/24/25 05:11 79 98 02/24/25 05:06 82 98 02/24/25 05:01 75 99 02/24/25 04:56 77 99 02/24/25 04:51 74 99 02/24/25 04:46 93 H 99 02/24/25 04:41 79 100 02/24/25 04:36 75 99 02/24/25 04:31 93 H 100 02/24/25 04:26 84 99 02/24/25 04:21 85 100 02/24/25 04:16 74 100 02/24/25 04:11 71 99 02/24/25 04:10 36.8 C 72 16 113/61 02/24/25 04:06 85 100 02/24/25 04:01 78 99 02/24/25 03:56 77 99 02/24/25 03:51 72 99 02/24/25 03:46 75 98 02/24/25 03:41 74 98 02/24/25 03:36 76 98 02/24/25 03:31 74 98 02/24/25 03:26 75 98 02/24/25 03:21 77 97 02/24/25 03:16 75 98 02/24/25 03:11 76 98 02/24/25 03:06 78 99 02/24/25 03:03 36.5 C 76 15 116/65 02/24/25 03:01 75 98 02/24/25 02:56 79 98 02/24/25 02:51 77 99 02/24/25 02:46 75 99 02/24/25 02:41 81 99 02/24/25 02:36 80 99 02/24/25 02:31 87 99 02/24/25 02:26 78 99 02/24/25 02:21 74 100 02/24/25 02:20 79 114/65 02/24/25 02:16 71 100 02/24/25 02:11 78 100 02/24/25 02:06 87 100 02/24/25 02:01 82 100 02/24/25 01:56 85 100 02/24/25 01:51 83 99 02/24/25 01:46 81 99 02/24/25 01:41 91 H 99 02/24/25 01:36 85 99 02/24/25 01:34 36.8 C 82 16 111/60 02/24/25 01:31 81 97 02/24/25 01:26 82 97 02/24/25 01:21 78 97 02/24/25 01:16 78 97 02/24/25 01:11 85 97 02/24/25 01:06 84 97 02/24/25 01:01 83 97 02/24/25 00:56 81 96 02/24/25 00:51 86 97 02/24/25 00:46 79 98 02/24/25 00:41 83 98 02/24/25 00:36 78 99 02/24/25 00:31 114 H 98 02/24/25 00:29 83 119/66 02/24/25 00:26 86 99 02/24/25 00:21 81 96 02/24/25 00:16 79 96 02/24/25 00:11 76 97 02/24/25 00:06 78 97 02/24/25 00:01 76 97 02/23/25 23:56 76 97 02/23/25 23:51 76 97 02/23/25 23:46 79 98 02/23/25 23:45 36.6 C 75 16 115/56 L 02/23/25 23:41 76 98 02/23/25 23:36 71 99 02/23/25 23:31 88 100 02/23/25 23:26 93 H 100 02/23/25 23:21 85 100 02/23/25 23:16 93 H 99 02/23/25 23:11 80 99 02/23/25 23:06 79 99 02/23/25 23:01 89 99 02/23/25 22:56 89 98 02/23/25 22:51 82 98 02/23/25 22:46 88 98 02/23/25 22:41 85 99 02/23/25 22:36 103 H 100 02/23/25 22:31 83 98 02/23/25 22:26 84 99 02/23/25 22:21 77 98 02/23/25 22:16 78 99 02/23/25 22:13 86 112/59 L 02/23/25 22:11 84 99 02/23/25 22:06 87 99 02/23/25 22:01 86 99 02/23/25 21:56 83 99 02/23/25 21:51 93 H 99 02/23/25 21:46 79 99 02/23/25 21:41 85 100 02/23/25 21:36 87 99 02/23/25 21:31 77 100 02/23/25 21:30 73 104/59 L 02/23/25 21:26 73 99 02/23/25 21:21 75 99 02/23/25 21:16 76 99 02/23/25 21:11 80 100 02/23/25 21:06 78 99 02/23/25 21:01 77 98 02/23/25 21:00 36.6 C 72 16 104/53 L 02/23/25 20:56 76 98 02/23/25 20:51 76 98 02/23/25 20:46 75 99 02/23/25 20:45 86 96/50 L 02/23/25 20:41 76 98 02/23/25 20:36 72 98 02/23/25 20:31 74 97 02/23/25 20:29 75 108/57 L 02/23/25 20:26 74 98 02/23/25 20:21 78 98 02/23/25 20:15 77 98 02/23/25 20:14 73 106/57 L 02/23/25 20:10 83 98 02/23/25 20:05 79 97 02/23/25 20:00 75 97 02/23/25 19:59 77 105/59 L 02/23/25 19:55 76 97 02/23/25 19:50 78 98 02/23/25 19:45 83 98 02/23/25 19:44 81 104/53 L 02/23/25 19:40 80 98 02/23/25 19:35 80 98 02/23/25 19:30 81 98 02/23/25 19:29 78 99/54 L 02/23/25 19:25 81 98 02/23/25 19:20 80 98 02/23/25 19:15 77 98 02/23/25 19:10 85 102/61 99 02/23/25 19:05 99 02/23/25 19:05 84 02/23/25 19:05 94 H 115/60 02/23/25 19:01 81 107/59 L 02/23/25 19:00 18 02/23/25 19:00 36.6 C 18 02/23/25 18:59 84 98 02/23/25 18:55 82 113/60 02/23/25 18:54 83 99 02/23/25 18:49 99 02/23/25 18:49 92 H 02/23/25 18:49 87 123/63 02/23/25 18:47 84 126/63 02/23/25 18:45 83 120/59 L 02/23/25 18:44 84 100 02/23/25 18:43 92 H 119/65 02/23/25 18:41 86 117/58 L 02/23/25 18:40 91 H 120/60 02/23/25 18:39 90 127/62 100 02/23/25 18:37 82 139/66 02/23/25 18:35 93 H 128/53 L 02/23/25 18:34 84 100 02/23/25 18:29 89 84 L 02/23/25 18:28 81 89 L 02/23/25 18:24 83 100 02/23/25 18:19 87 100 02/23/25 18:14 73 99 02/23/25 17:30 74 116/58 L 02/23/25 16:30 63 117/74 02/23/25 15:24 88 112/65 Pain Intensity Lower Back: Pain Intensity: 0 Transfer of Care Handoff Completed per policy Notes Mental Status: alert / awake / arousable Patient Amnestic to Procedure: Yes Nausea / Vomiting: adequately controlled Pain: adequately controlled Airway Patency, RR, SpO2: stable & adequate BP & HR: stable & adequate Hydration State: stable & adequate Anesthetic Complications: no major complications apparent and Pt Satisfied with anesthetic care
[2025-02-24] MEDS ORDERED: NO NARCOTICS OR SEDATIVES SCH (15:00)
[2025-02-24] MEDS ORDERED: DC INTRASPINAL MORPHINE SCH (15:00)
[2025-02-24] MEDS: DIPHTHER/TETAN/PERTUS Vaccine (Tdap, Adol/Adult) 0.5mL IM ONE (15:10)
[2025-02-24] MEDS: KETOROLAC 30 MG/ML VIAL IV SCH (15:51)
[2025-02-24] MEDS: MoRPHine SULFATE PF 1 MG/ML 10 ML AMP/VIAL EPI ONE (16:04)
[2025-02-24] MEDS: SODIUM CHLORIDE 0.9% 1,000 ML IV SCH (16:05)
[2025-02-24] MEDS: LACTATED RINGER'S 1,000 ML IV SCH (16:20)
[2025-02-24] MEDS: OXYTOCIN 20 UNITS/LR 1,002 ML IV SCH (16:21)
[2025-02-24] MEDS: SIMETHICONE 80 MG CHEW PO SCH (17:53)
[2025-02-24] MEDS ORDERED: Nursing to Pharmacy Communication SCH (20:45)
[2025-02-24] MEDS: DOCUSATE SODIUM 100 MG CAP PO SCH (20:48)
[2025-02-24] MEDS: levETIRAcetam 500 MG TAB PO SCH (20:49)
[2025-02-24] MEDS: ACETAMINOPHEN 325 MG TAB PO SCH (22:15)
[2025-02-24] MEDS: MAGNESIUM OXIDE 400 MG TAB PO SCH (22:15)
[2025-02-25] MEDS: CALCIUM CARBONATE 500 MG CHEWABLE TAB PO PRN (04:18)
[2025-02-25] MEDS ORDERED: AZITHROMYCIN 500 MG/255 ML BAG IV SCH (06:00)
[2025-02-25] MEDS ORDERED: CITRIC ACID/SODIUM CITRATE 15 ML UDC PO SCH (06:00)
[2025-02-25] MEDS: NALOXONE HCL 0.08 MG in SYRINGE 1.8 ML IV PRN (06:15)
[2025-02-25] MEDS: FERROUS SULFATE 325 MG TAB PO SCH (08:03)
[2025-02-25] MEDS: FLUTICASONE PROPIONATE NA SPR 16 GM BTL SCH (08:03)
[2025-02-25] MEDS: PRENATAL VITAMIN 1 TAB PO SCH (08:03)
[2025-02-25 08:49] LABS: Hematocrit (blood only) 31.7 % (37.0-47.0); Hemoglobin 10.8 g/dl (12.0-16.0); Immature Granulocytes # (auto) 0.05 K/uL (0.01-0.20); Immature Granulocytes % (auto) 0.3 %; Mean Corpuscular Hemoglobin 29.8 pg (25.0-34.0); Mean Corpuscular Volume 86.1 fL (80.0-100.0); Platelet Count 142 K/uL (130-400); RDW Standard Deviation 41.1 fL (36.4-46.3); Red Blood Count 3.63 M/uL (4.20-5.40); White Blood Count 15.57 K/ul (4.8-10.8)
[2025-02-25] MEDS ORDERED: HYDROmorphone INJ 0.5 MG/0.5 ML SYR IV PRN (08:55)
[2025-02-25] MEDS ORDERED: diphenhydrAMINE 50 MG/ML VIAL IV PRN (08:55)
[2025-02-25] MEDS ORDERED: diphenhydrAMINE Capsule 25 MG CAP PO PRN (08:55)
[2025-02-25] MEDS ORDERED: SERTRALINE HCL 50 MG TABLET PO SCH (09:00)
--- NOTE | 2025-02-25 09:03 | Obstetrical Progress Note ---
Date of Service February 25, 2025 Assessment & Plan (1) S/P : (2) Encounter for care and examination after delivery: Plan 34 yo POD 1 from [facility], doing well -Meeting all pp milestones. Mostly soreness with getting up and down, discussed belly band. Also encouraged making sure voiding consistently -O+/rubella immune -f/u 6 weeks for appt, continue routine care Subjective Ambulation: ambulating normally Voiding: no voiding problems (just voided after narcan dosing) Diet Tolerance:: regular diet Lochia:: Small Pain well managed with medication Review of Systems Denies fevers, chills, n/v, SANCHEZ, CP, SOB Physical Exam Constitutional WD/WN, vitals as above no acute distress Respiratory normal respiratory effort, lungs clear to auscultation Cardiovascular RRR, no murmur, no edema Gastrointestinal (Abdomen) Percussion/Palpation: abdomen soft; abdomen nontender fundus firm at umbilicus and NT, dressing c/d/i Musculoskeletal BLE symmetric, nonerythematous, nontender Results & Data Vital Signs (Past 12 Hours) Vital Signs Temp Pulse Resp BP Pulse Ox O2 Del Method 02/25/25 05:00 16 98 02/25/25 04:00 16 98 02/25/25 03:00 97.7 F 66 18 114/74 94 Room Air 02/24/25 23:00 18 96
[2025-02-25] MEDS ORDERED: KETOROLAC 30 MG/ML VIAL IV PRN (14:08)
[2025-02-25] MEDS: IBUPROFEN 600 MG TAB PO SCH (15:47)
[2025-02-26 06:03] LABS: Hematocrit (blood only) 27.0 % (37.0-47.0); Hemoglobin 9.0 g/dl (12.0-16.0)
--- NOTE | 2025-02-26 07:37 | Obstetrical Progress Note ---
Date of Service February 26, 2025 Assessment & Plan (1) S/P : (2) Encounter for care and examination after delivery: Plan 34 yo POD 1 from [facility], doing well -Meeting all pp milestones. -O+/rubella immune -f/u 6 weeks for appt, having some difficulty w/ but improving. continue routine care, ok for dc if desires today otherwise plan tomorrow Subjective Ambulation: ambulating normally Voiding: no voiding problems Passing Gas:: Yes Diet Tolerance:: regular diet Lochia:: Small Feeding Type:: breast feeding Pain well managed with medication Review of Systems Denies fevers, chills, n/v, SANCHEZ, CP, SOB Physical Exam Constitutional WD/WN, vitals as above no acute distress Respiratory normal respiratory effort, lungs clear to auscultation Cardiovascular RRR, no murmur, no edema Gastrointestinal (Abdomen) Percussion/Palpation: abdomen soft; abdomen nontender fundus firm at umbilicus and NT, incision c/d/i Musculoskeletal BLE symmetric, nonerythematous, nontender Results & Data Vital Signs (Past 12 Hours) Vital Signs Temp Pulse Resp BP Pulse Ox O2 Del Method 02/26/25 07:31 97.9 F 86 18 121/77 98 Room Air 02/25/25 22:35 97.9 F 87 16 97/61 L 98 Room Air
[2025-02-26] MEDS: IBUPROFEN 600 MG TAB PO PRN (15:15)
[2025-02-26] MEDS: MAGNESIUM HYDROXIDE SUSP 30 ML UDC PO PRN (20:32)
[2025-02-27] MEDS: ACETAMINOPHEN 325 MG TAB PO PRN (00:20)
[2025-02-27 00:33] VITALS: O2SAT 100
--- NOTE | 2025-02-27 06:06 | Obstetrical Progress Note ---
Date of Service February 27, 2025 Assessment & Plan (1) Encounter for care and examination after delivery: Plan: Patient had a done and appears to be stable. Patient has been in post- for 4 days. Will be discharged today. (2) Delivery by section at 37-39 weeks of gestation due to labor: Admission and Anticipated Discharge Date Admission Date: February 23, 2025 Supervising Physician Co-Signing Physician Notes Patient seen with resident and agree with the above findings and plan. Day 4 status post section. Noting symmetric lower extremity swelling. Swelling is +1 on exam. Denying distinct calf pain/tenderness. Reviewed symptoms of DVT and patient continued to monitor. Stable for discharge home today. Subjective 34 yo G1P post- day 4 s/p [] Ambulation: ambulating normally Voiding: no voiding problems Passing Gas:: Yes Diet Tolerance:: regular diet Feeding Type:: breast feeding with a little of supplementation through syringe. Current Pain Level: States that during the day the pain waxes and wanes. Resting comfortably this AM in NAD. Denies CP/palp, SOB/cough/wheeze, N/V, UTI Sx, breast pain/Dschrg Admits to cold sweats. Admits to migraines which is a chronic issue. Admits to LE edema and some calf pain, which the L. calf is worse. Review of Systems Review of Systems: as per subjective HPI Physical Exam Constitutional: WD/WN, vitals as above no acute distress Respiratory: normal respiratory effort, lungs clear to auscultation normal respiratory effort Auscultation: lungs clear to auscultation bilaterally Cardiovascular: Rate/Rhythm: regular rate and regular rhythm Heart Sounds: no murmur Gastrointestinal (Abdomen): Uterus at level of umbilicus. wound is healing nicely with no signs of infection. Musculoskeletal: Leg swelling bilaterally Psychiatric: Speech: normal rate/rhythm/volume of speech Thought Process: linear/logical thought process Results & Data Vital Signs (Past 12 Hours) Vital Signs Temp Pulse Resp BP Pulse Ox O2 Del Method 02/27/25 00:05 37 C 76 18 105/69 100 Room Air 02/26/25 20:15 Room Air 02/26/25 20:15 36.6 C 88 18 103/69 98 Room Air
--- NOTE | 2025-02-27 13:54 | Ultrasound Report ---
BILATERAL LOWER EXTREMITY VENOUS DOPPLER HISTORY: Acute pain and swelling of the lower legs Leg swelling and calf tenderness COMPARISON STUDY: None. FINDINGS: There is normal compressibility, flow, and augmentation within the bilateral lower extremit y deep venous systems. Nonspecific subcutaneous edema of the lower legs. Morphologically normal-appea ring inguinal chain lymph nodes are likely reactive. IMPRESSION: No DVT within the right or left lower extremity. ACT 112: Negative or not required by law. Electronically signed by: Reji Rivera M.D. 02/27/2025 1:53 PM
--- NOTE | 2025-02-27 14:12 | Obstetrical Progress Note ---
Date of Service February 27, 2025 Assessment & Plan (1) Encounter for care and examination after delivery: Plan: Patient had a done and appears to be stable. Patient has been in post- for 4 days. Will be discharged today. Due to patient's worry of leg swelling, calf/thigh tenderness, along with hypercoagulable state of post-, ordered a DVT US of legs B/L. Venous Doppler Study: IMPRESSION: No DVT within the right or left lower extremity. Due to negative DVT in legs B/L and patient currently stable, will be discharged today. (2) Delivery by section at 37-39 weeks of gestation due to labor: Admission and Anticipated Discharge Date Admission Date: February 23, 2025 Subjective 34 yo G1P post- day 4 s/p [] Ambulation: ambulating normally Voiding: no voiding problems Passing Gas:: Yes Diet Tolerance:: regular diet Feeding Type:: breast feeding with a little of supplementation through syringe. Current Pain Level: States that during the day the pain waxes and wanes. Resting comfortably this AM in NAD. Denies CP/palp, SOB/cough/wheeze, N/V, UTI Sx, breast pain/Dschrg Admits to cold sweats. Admits to migraines which is a chronic issue. Admits to LE edema and some calf pain, which the L. calf is worse. Later in the morning patient was having increased worry of leg swelling and tenderness in both legs and in the thighs. Patient said that when she walks she feels like her skin is "pulling" but no pain when walking. Review of Systems Review of Systems: as per subjective HPI Physical Exam Constitutional: WD/WN, vitals as above no acute distress Respiratory: normal respiratory effort, lungs clear to auscultation normal respiratory effort Auscultation: lungs clear to auscultation bilaterally Cardiovascular: Rate/Rhythm: regular rate and regular rhythm Heart Sounds: no murmur Extremities: + calf tenderness (B/L) and + edema (B/L) Swelling on legs looked very slightly worse on R. leg. Tenderness to palpation on lateral thighs B/L and anterior aspect of L. thigh. Psychiatric: Speech: normal rate/rhythm/volume of speech Thought Process: linear/logical thought process Results & Data Vital Signs (Past 12 Hours) Vital Signs Temp Pulse Resp BP BP Pulse Ox O2 Del Method 02/27/25 08:54 36.4 C L 83 16 114/74 97/83 L 100 02/27/25 07:22 36.4 C L 83 16 97/83 L 100 Room Air
[2025-02-27 16:24] VITALS: BP 112/77; PULSE 93; RESP 18; TEMP 98.4
--- NOTE | 2025-03-02 07:56 | Discharge Summary ---
Date of Service March 02, 2025 Admission HPI Per Admitting Provider Patient is a 34yowf with iup at 39 2/7 weeks who presents for elective iol. Notes intermittent contractions. No lof/vb. +fm. and Delivery Plans Epilepsy/migraines *sees neuro, Dr. Leon - On [place] Depression/Anxiety *zoloft *[facility] AMA Weekly NST's @ 36 weeks Wants to consider 39wk elective induction - PD IOL scheduled for 02/23 with [facility] OB Labs: Blood Type O Positive 08/09/24 Antibody Screen NEGATIVE 08/09/24 Hgb 12.0 g/dl (12.0-16.0) 12/20/24 Hct 35.3 % (37.0-47.0) L 12/20/24 MCV 85.0 fL (80.0-100.0) 08/09/24 Plt Count 281 K/uL (130-400) 08/09/24 Rubella IgG Antibody Immune (Immune) 08/09/24 Treponema pallidum Ab Negative (Negative) 12/20/24 Hep Bs Antigen Negative (Negative) 08/09/24 Hepatitis C Antibody Negative (Negative) 08/09/24 HIV 1&2 Ab/P24 Ag 4thGn Negative (Negative) 08/09/24 Glucose 1 Hr 50 gm 115 mg/dl (70-130) 12/20/24 Maternal Serum AFP 51.8 ng/mL 09/15/24 OB Optional Labs: Chlamydia trachomatis RNA Not Detected (NotDetected) 08/09/24 Neisseria gonorrhoeae RNA Not Detected (NotDetected) 08/09/24 Thyroid Stimulating Hormone (TSH) 1.216 uIu/ml (0.300-4.500) 11/04/22 Alpha Fetoprotein Triple Screen SEE NOTE 09/15/24 Labs Reviewed: afp neg neg horizon low risk panorama. gbs neg Discharge Data Consultations 02/23/25 13:45 Consult Anesthesiology Stat Procedures Performed Operation Date: 02/24/25 13:00 Actual Procedures p Section in LD(Bilateral) - Catalina Pizarro MD Hospital Course (1) Delivery by section at 37-39 weeks of gestation due to labor: 34 yo G1 at 39 3/7 wga presented for eIOL yesterday afternoon. Induction begun with ruiz bulb and pitocin. Following bulb expulsion, she underwent arom and then epidural for pain control. Pitocin was unable to gain adequate contractions so IUPC was placed to help guide. Pitocin maximum was increased to 30 however still could not get adequate contractions and cervix would not dilate past 5-6cm for 12+ hrs. Discussed options and pt desired to proceed with above procedure. See operative report for details. course was uncomplicated, she did get a duplex due to swelling of legs and was neg for DVT. She was discharged home on POD3 Coding Level of Care Code None Diagnoses Delivery by section at 37-39 weeks of gestation due to labor O75.82
== END 2025-02-28 02:07 | disposition home or self-care (01) | DRG 788 ==
LOC: 4S1 12:24 → 4E2 02-24 18:02
DX: Z87.891 Personal history of nicotine dependence; G40.909 Epilepsy, unspecified, not intractable, without status epilepticus; Z79.899 Other long term (current) drug therapy; R60.0 Localized edema; O99.354 Diseases of the nervous system complicating childbirth; M79.662 Pain in left lower leg; Z3A.39 39 weeks gestation of pregnancy; O99.344 Other mental disorders complicating childbirth; M79.652 Pain in left thigh; O61.9 Failed induction of labor, unspecified; Z88.8 Allergy status to other drugs, medicaments and biological substances; M79.651 Pain in right thigh; F41.9 Anxiety disorder, unspecified; F32.A Depression, unspecified; Z37.0 Single live birth